=== PATIENT | female | born 1965 | race Caucasian/White ===

== ENCOUNTER 2019-12-24 15:46 | Observation (INO) | payer BC ==
--- OUTSIDE RECORDS SUMMARY | 2019-12-24 15:47 | XMS REPORT | Continuity of Care Document ---
:1965 Author Organization [facility] t Address [address] [place] [address] Care Team Providers Name Role Phone GABBY Attending Clinician Unavailable Problems Condition Condition Condition Status Onset Resolution Last Treating Co mments Source Name Details Category Date Date Treatment Clinician Date History of History of Problem Resolve Univers asthma asthma d ity of [place] Physici ans History of History of Problem Resolve Univers back pain back pain d ity of [place] Physici ans History of History of Problem Resolve Univers depression depression d it y of [place] Physici ans History of History of Problem Resolve Univers diabetes diabetes d ity of mellitus mellitus [place] Physici ans History of History of Problem Resolve Univers hypertensi hypertensi d it y of on on [place] Physici ans History of History of Problem Resolve Univers myocardial myocardial d it y of infarction infarction [place] [facility] History of History of Problem Resolve Univers peptic peptic d ity of ulcer ulcer [place] Physici ans Primary Primary Problem Active Univers osteoarthr osteoarthr it y of itis of itis of [place] right foot right foot Ph ysici ans Right foot Right foot Problem Active U nivers pain pain ity of [place] Physici ans Acquired Acquired Problem Active Unive rs hallux hallux ity of rigidus, rigidus, [place] right right Physici ans Ankle Ankle Problem Active Univers weakness weakness ity of [place] Physici ans Acute pain Acute pain Problem Active U nivers of left of left ity of knee knee [place] Physici ans Allergies, Adverse Reactions, Alerts Allergy Allergy Status Severity Reaction(s) Onset Inactive Treating Comm ents Source Name Type Date Date Clinician Cephalos drug Active Univers porins allergy ity of [place] Physici ans Cipro drug Active Univers allergy ity of [place] Physici ans Lyrica drug Active Univers CAPS allergy ity of [place] Physici ans Family History Family Member Diagnosis Comments Start Date Stop Date Source Mother Family history of [facility] [place] malignant neoplasm Physic ians Father Family history of [facility] [place] coronary artery Physician s disease Social History Smoking Status Start Date Stop Date Source Never smoker [facility] Physicians Medications Ordered Filled Start Stop Current Ordering Indication Dosage Frequency Signature Comments Components Source Medication Medication Date Date Medication? Clinician (SIG) Name Name Lisinopril Lisinopril Yes Uni vers 5 MG Oral 5 MG Oral ity o f Tablet Tablet [place] Physici ans Plavix 75 Plavix 75 Yes Unive rs MG Oral MG Oral ity of Tablet Tablet [place] Physici ans Aspirin 81 Aspirin 81 Yes Uni vers MG Oral MG Oral ity of Tablet Tablet [place] Delayed Delayed Physici Release Release ans PriLOSEC 20 PriLOSEC 20 Yes U nivers MG CPDR MG CPDR ity of [place] Physici ans Gabapentin Gabapentin Yes Uni vers 300 MG TABS 300 MG TABS i ty of [place] Physici ans Amaryl 4 MG Amaryl 4 MG Yes U nivers Oral Tablet Oral Tablet i ty of [place] Physici ans Paxil 20 MG Paxil 20 MG Yes U nivers Oral Tablet Oral Tablet i ty of [place] Physici ans Januvia 100 Januvia 100 Yes U nivers MG Oral MG Oral ity of Tablet Tablet [place] Physici ans Metoprolol Metoprolol Yes Uni vers Succinate Succinate ity o f ER 25 MG ER 25 MG [place] Oral Tablet Oral Tablet P hysici Extended Extended ans Release 24 Release 24 Hour Hour Lipitor 20 Lipitor 20 Yes Uni vers MG Oral MG Oral ity of Tablet Tablet [place] Physici ans Tricor 160 Tricor 160 Yes Uni vers MG TABS MG TABS ity of [place] Physici ans Singulair Singulair Yes Unive rs 10 MG Oral 10 MG Oral ity of Tablet Tablet [place] Physici ans Felipa Felipa Yes Univers Allergy 180 Allergy 180 i ty of MG Oral MG Oral [place] Tablet Tablet Physici ans Phenylephri Phenylephri Yes U nivers ne HCl 10 ne HCl 10 ity o f MG TABS MG TABS [place] Physici ans Robaxin 500 Robaxin 500 Yes U nivers MG Oral MG Oral ity of Tablet Tablet [place] Physici ans TraMADol TraMADol Yes Univers HCl - 50 MG HCl - 50 MG i ty of Oral Tablet Oral Tablet [place] Physici ans Tylenol Tylenol Yes Univers with with ity of Codeine #3 Codeine #3 Julio as 300-30 MG 300-30 MG Physi ci Oral Tablet Oral Tablet a ns Flonase Flonase Yes Univers Allergy Allergy ity of Relief SUSP Relief SUSP [place] Physici ans Ranexa 1000 Ranexa 1000 Yes U nivers MG Oral MG Oral ity of Tablet Tablet [place] Extended Extended Physici Release 12 Release 12 ans Hour Hour Procedures Procedure Date / Time Performing Clinician Source Performed [U] XRAY KNEE 3 VWS LEFT 2017-03-05 00:00:00 Uni [facility] [id number] Physicians [facility] History of cervical [facility] [place] vertebral fusion Physicians History of lumbar University [facility] laminectomy Physicians History of hysterectomy [facility] Physicians [facility] History of cholecystectomy [facility] Physicians History of sinus surgery Univers [facility] Physicians Encounters Start End Encounter Admission Attending Care Care Encounter Source Date/Time Date/Time Type Type Clinicians Facility Department ID 2018-09-16 Outpatient [id number] 14:47:30 [facility] 2017-03-05 2017-03-05 Appointmen ROSA KOWALSKI [place] [id number] [facility] 11:45:00 11:45:00 [facility] SANDI SARKAR Physi ci M.DMili ans 2017-02-14 2017-02-14 Appointmen ROSA KOWALSKI [facility] [id number] Univers 11:30:00 11:30:00 [facility] M.D. [place] SANDI SARKAR Physi ci M.DMili ans Results This patient has no known results.
[2019-12-24 16:30] LABS: Urine Blood NEGATIVE (NEG); Urine Glucose NEGATIVE (NEG); Urine Protein NEGATIVE (NEG); Urine Specific Gravity 1.015 (1.005-1.030)
[2019-12-24 16:39] LABS: Absolute Lymphocytes (CBC) 1.8 K/uL (0.7-4.9); Basophils % 0.3 % (0-1.3); Hematocrit 34.9 % (36.0-45.0); Lymphocytes % 25.8 % (15.3-44.8); RBC Red Blood Cell Count 4.31 M/uL (3.86-4.86)
[2019-12-24 16:55] LABS: Albumin 3.9 g/dL (3.4-5.0); Bilirubin Direct 0.1 mg/dL (0-0.2); Bilirubin Total 0.3 mg/dL (0.2-1.0); Potassium 3.7 mmol/L (3.5-5.1); Protein, Total 7.1 g/dL (6.4-8.2)
[2019-12-24] MEDS ORDERED: NA CHLORIDE 0.9% 500 ML ONE (17:19)
--- NOTE | 2019-12-24 17:48 | RAD REPORT ---
EXAM DESCRIPTION: CTAbdomen Pelvis W Contrast - 12/24/2019 5:20 pm CLINICAL HISTORY: Abdominal pain. RLQ pain;Abd pain COMPARISON: No comparisons TECHNIQUE: Biphasic CT imaging of the abdomen and pelvis was performed with 100 ml non-ionic IV cont rast. All CT scans are performed using dose optimization technique as appropriate and may include automated exposure control or mA/KV adjustment according to patient size. FINDINGS: The lung bases are clear.Cholecystectomy clips. The liver, spleen, pancreas, adrenal glands and kidneys are within normal limits. No bowel obstruction, free air, free fluid or abscess. The appendix is enlarged to 9-10 mm with surr ounding inflammation compatible with early acute appendicitis. No evidence of significant lymphadeno gregoria. Moderate lumbosacral degenerative changes. IMPRESSION: Early acute appendicitis.
--- NOTE | 2019-12-24 18:06 | EDPHYS ---
Physician Documentation [facility] Name: Shahida Guardado Age: 54 yrs Sex: Female : 1965 Arrival Date: 12/24/2019 Time: 15:48 Bed 17 Private MD: Jaime Cortez R ED Physician Chin Aguilar HPI: 12/23 19:02 This 54 yrs old Female presents to ER via Ambulatory with complaints of kdr Abdominal Pain. 19:02 The patient presents with abdominal pain. Onset: The symptoms/episode began/occurred kdr gradually, yesterday. The symptoms radiate to the right flank. Associated signs and symptoms: Pertinent positives: nausea, Pertinent negatives: blood in stools, chest pain, constipation, diarrhea, dysuria, fever, headache, hematuria, palpitations, shortness of breath, vaginal discharge, vomiting, vomiting blood. The symptoms are described as achy, sharp. Severity of pain: At its worst the pain was mild in the emergency department the pain is unchanged. The patient has not experienced similar symptoms in the past. The patient has not recently seen a physician. 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 - Social history:: Smoking status: Patient denies any tobacco usage or history of. ROS: 19:02 Constitutional: Negative for fever, chills, and weight loss, Eyes: Negative for injury, kdr pain, redness, and discharge, Neck: Negative for injury, pain, and swelling, Cardiovascular: Negative for chest pain, palpitations, and edema, Respiratory: Negative for shortness of breath, cough, wheezing, and pleuritic chest pain, Back: Negative for injury and pain, : Negative for injury, bleeding, discharge, and swelling, MS/Extremity: Negative for injury and deformity, Skin: Negative for injury, rash, and discoloration, Neuro: Negative for headache, weakness, numbness, tingling, and seizure activity. Psych: Negative for depression, anxiety, suicide ideation, homicidal ideation, and hallucinations, Allergy/Immunology: Negative for hives, rash, and allergies, Endocrine: Negative for neck swelling, polydipsia, polyuria, polyphagia, and marked weight changes, Hematologic/Lymphatic: Negative for swollen nodes, abnormal bleeding, and unusual bruising. 19:02 Abdomen/GI: Positive for abdominal pain, nausea, Negative for abdominal cramps, abdominal distension, anorexia, dysphagia, hematemesis, black/tarry stool, rectal pain, rectal bleeding, bowel incontinence. Exam: 19:02 Constitutional: This is a well developed, well nourished patient who is awake, alert, kdr and in no acute distress. Head/Face: Normocephalic, atraumatic. Eyes: Pupils equal round and reactive to light, extra-ocular motions intact. Lids and lashes normal. Conjunctiva and sclera are non-icteric and not injected. Cornea within normal limits. Periorbital areas with no swelling, redness, or edema. Neck: Trachea midline, no thyromegaly or masses palpated, and no cervical lymphadenopathy. Supple, full range of motion without nuchal rigidity, or vertebral point tenderness. No Meningismus. Chest/axilla: Normal chest wall appearance and motion. Nontender with no deformity. No lesions are appreciated. Cardiovascular: Regular rate and rhythm with a normal S1 and S2. No gallops, murmurs, or rubs. Normal PMI, no JVD. No pulse deficits. Respiratory: Lungs have equal breath sounds bilaterally, clear to auscultation and percussion. No rales, rhonchi or wheezes noted. No increased work of breathing, no retractions or nasal flaring. Back: No spinal tenderness. No costovertebral tenderness. Full range of motion. Skin: Warm, dry with normal turgor. Normal color with no rashes, no lesions, and no evidence of cellulitis. MS/ Extremity: Pulses equal, no cyanosis. Neurovascular intact. Full, normal range of motion. Neuro: Awake and alert, GCS 15, oriented to person, place, time, and situation. Cranial nerves II-XII grossly intact. Motor strength 5/5 in all extremities. Sensory grossly intact. Cerebellar exam normal. Normal gait. Psych: Awake, alert, with orientation to person, place and time. Behavior, mood, and affect are within normal limits. 19:02 Abdomen/GI: Inspection: obese Bowel sounds: active, Palpation: soft, mild abdominal tenderness, in the anterior aspect of right lateral abdomen and right lower quadrant. 20:02 ECG was reviewed by the Attending Physician. kdr Vital Signs: 15:53 BP 110 / 73; Pulse 82; Resp 20; Temp 97.8; Pulse Ox 100% ; Weight 95.71 kg; Height 5 sv ft. 7 in. (170.18 cm); 17:27 BP 110 / 55; Pulse 69; Resp 17 S; Pulse Ox 97% on R/A; ca1 18:30 BP 115 / 77; Pulse 66; Resp 15 S; Pulse Ox 100% on R/A; ca1 15:53 Body Mass Index 33.05 (95.71 kg, 170.18 cm) sv MDM: 18:05 Patient medically screened. kdr 19:02 Data reviewed: vital signs, nurses notes, lab test result(s), radiologic studies. kdr Counseling: I had a detailed discussion with the patient and/or guardian regarding: the historical points, exam findings, and any diagnostic results supporting the discharge/admit diagnosis, lab results, radiology results, the need for further work-up and treatment in the hospital. Physician consultation: Miguelito Rowley MD regarding admission, patient's condition. 12/23 16:20 Order name: Basic Metabolic Panel; Complete Time: 17:01 kdr 12/23 16:20 Order name: CBC with Diff; Complete Time: 17: kdr 12/23 16:20 Order name: Hepatic Function; Complete Time: 17: kdr 12/23 16:20 Order name: Lipase; Complete Time: 17:01 kdr 12/23 16:26 Order name: Urine Dipstick--Ancillary (enter results); Complete Time: 17:01 eb 12/23 17:01 Order name: CT Abd/Pelvis - IV Contrast Only; Complete Time: 18:02 kdr 12/23 16:15 Order name: Urine Dipstick-Ancillary (obtain specimen); Complete Time: 16:21 ca1 12/23 16:20 Order name: IV Saline Lock; Complete Time: 16:35 kdr 12/23 16:20 Order name: Labs collected and sent; Complete Time: 16:35 kdr 12/23 18:18 Order name: Chest Single View XRAY ca1 12/23 18:19 Order name: EKG; Complete Time: 18: ca1 12/23 18: Order name: EKG - Nurse/Tech; Complete Time: 18: ca1 EC:02 Rate is 65 beats/min. Rhythm is regular, Normal Sinus Rhythm with No ectopy. QRS [place] kdr is Normal. SC interval is normal. QRS interval is normal. QT interval is normal. Clinical impression: NSR w/ Non-specific ST/T Changes. Administered Medications: 17:09 Drug: NS 0.9% 500 ml Route: IV; Rate: bolus; Site: right antecubital; ca1 18:03 Follow up: IV Status: Completed infusion; IV Intake: 500ml ca1 18:03 Follow up: Response: No adverse reaction ca1 18:18 Drug: Zosyn 3.375 grams Route: IVPB; Infused Over: 60 mins; Site: right antecubital; ca1 Disposition: 12/24/19 18:05 Hospitalization ordered by Miguelito Rowley for Observation. Preliminary diagnosis is Acute appendicitis. - Bed requested for Telemetry/MedSurg (observation). - Status is Observation. aj1 - Condition is Fair. - Problem is new. - Symptoms have improved. Signatures: Dispatcher [employer] EDMS Geri Aragon RN RN aj1 Khloe Fang RN RN Chin Aguilar MD MD kdr Angie Brumfield RN RN ca1 Corrections: (The following items were deleted from the chart) 19: 18:05 Hospitalization Ordered by Miguelito Rowley MD for Observation. Preliminary aj1 diagnosis is Acute appendicitis. Bed requested for Telemetry/MedSurg (observation). Status is Observation. Condition is Fair. Problem is new. Symptoms have improved. kdr
--- NOTE | 2019-12-24 18:06 | ER ---
Nurse's Notes [facility] Name: Shahida Guardado Age: 54 yrs Sex: Female : 1965 Arrival Date: 12/24/2019 Time: 15:48 Bed 17 Private MD: Jaime Cortez R Diagnosis: Acute appendicitis Presentation: 12/23 15:52 Chief complaint: Patient states: RLQ pain that started yesterday. Denies n/v. sv Coronavirus screen: Client denies travel out of the [place] in the last 14 days. At this time, the client does not indicate any symptoms associated with coronavirus-19. Ebola Screen: No symptoms or risks identified at this time. Risk Assessment: Do you want to hurt yourself or someone else? Patient reports no desire to harm self or others. Onset of symptoms was December 23, 2019. 15:52 Method Of Arrival: Ambulatory sv 15:52 Acuity: KIMBERLY 3 sv 15:53 Initial Sepsis Screen: Does the patient meet any 2 criteria? No. Patient's initial sv sepsis screen is negative. Does the patient have a suspected source of infection? No. Patient's initial sepsis screen is negative. 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 - Social history:: Smoking status: Patient denies any tobacco usage or history of. Screenin:05 Abuse screen: Denies threats or abuse. Denies injuries from another. Nutritional ca1 screening: No deficits noted. Tuberculosis screening: No symptoms or risk factors identified. Fall Risk IV access (20 points). Assessment: 15:54 Reassessment: Informed Dr Aguilar of reason for visit. sv 16:05 General: Appears in no apparent distress. comfortable, Behavior is calm, cooperative, ca1 appropriate for age. Pain: Complains of pain in right lower quadrant Pain began 1 day ago. Is intermittent. Neuro: Level of Consciousness is awake, alert, obeys commands, Oriented to person, place, time, situation. Cardiovascular: Heart tones S1 S2 present Capillary refill < 3 seconds Patient's skin is warm and dry. Respiratory: Airway is patent Respiratory effort is even, unlabored, Respiratory pattern is regular, symmetrical, Breath sounds are clear bilaterally. GI: Abdomen is round non-distended, Bowel sounds present X 4 quads. Abd is soft X 4 quads Abdomen is tender to palpation in suprapubic area and right lower quadrant Reports nausea. : No signs and/or symptoms were reported regarding the genitourinary system. EENT: No signs and/or symptoms were reported regarding the EENT system. Derm: Skin is intact, is healthy with good turgor, Skin is pink, warm \T\ dry. Musculoskeletal: Circulation, motion, and sensation intact. Capillary refill < 3 seconds. 17:27 Reassessment: Patient appears in no apparent distress at this time. Patient and/or ca1 family updated on plan of care and expected duration. Pain level reassessed. Patient is alert, oriented x 3, equal unlabored respirations, skin warm/dry/pink. 18:30 Reassessment: Patient appears in no apparent distress at this time. Patient and/or ca1 family updated on plan of care and expected duration. Pain level reassessed. Patient is alert, oriented x 3, equal unlabored respirations, skin warm/dry/pink. 19:01 Reassessment: Patient and/or family updated on plan of care and expected duration. Pain aj1 level reassessed. Patient is alert, oriented x 3, equal unlabored respirations, skin warm/dry/pink. Patient ambulated to the restroom with a steady gait. Vital Signs: 15:53 BP 110 / 73; Pulse 82; Resp 20; Temp 97.8; Pulse Ox 100% ; Weight 95.71 kg; Height 5 sv ft. 7 in. (170.18 cm); 17:27 BP 110 / 55; Pulse 69; Resp 17 S; Pulse Ox 97% on R/A; ca1 18:30 BP 115 / 77; Pulse 66; Resp 15 S; Pulse Ox 100% on R/A; ca1 15:53 Body Mass Index 33.05 (95.71 kg, 170.18 cm) sv ED Course: 15:48 Patient arrived in ED. mr 15:48 Jaime Cortez MD is Private Physician. mr 15:52 Arm band placed on. sv 15:53 Triage completed. sv 15:56 Angie Brumfield RN is Primary Nurse. ca1 16:05 Patient has correct armband on for positive identification. Placed in gown. Bed in low ca1 position. Call light in reach. Side rails up X2. Pulse ox on. NIBP on. Warm blanket given. 16:20 Chin Aguilar MD is Attending Physician. kdr 16:35 Inserted saline lock: 20 gauge in right antecubital area, using aseptic technique. dh4 Blood collected. 16:35 Hepatic Function Sent. dh4 16:35 Lipase Sent. dh4 16:35 Basic Metabolic Panel Sent. dh4 16:36 CBC with Diff Sent. dh4 17:20 CT Abd/Pelvis - IV Contrast Only In Process Unspecified. EDMS 18:03 Miguelito Rowley MD is Hospitalizing Provider. kdr 18:58 Chest Single View XRAY In Process Unspecified. EDMS 19:00 Report given to VERENICE Nevarez. ca1 19:17 Report given to ERNESTO Higgins RN. aj1 19:18 No provider procedures requiring assistance completed. aj1 19:19 Patient admitted, IV remains in place. aj1 Administered Medications: 17:09 Drug: NS 0.9% 500 ml Route: IV; Rate: bolus; Site: right antecubital; ca1 18:03 Follow up: IV Status: Completed infusion; IV Intake: 500ml ca1 18:03 Follow up: Response: No adverse reaction ca1 18:18 Drug: Zosyn 3.375 grams Route: IVPB; Infused Over: 60 mins; Site: right antecubital; ca1 Intake: 18:03 IV: 500ml; Total: 500ml. ca1 Outcome: 18:05 Decision to Hospitalize by Provider. kdr 19:19 Admitted to OR via stretcher. aj1 19:19 Condition: good 19:19 Discharge instructions given to patient, Instructed on the need for admit, Demonstrated understanding of instructions. 19:19 Patient left the ED. aj1 Signatures: Dispatcher [employer] EDMS Geri Aragon RN RN aj1 Khloe Fang RN RN Chin Aguilar MD MD kdr Madison Santiago mr Angie Brumfield RN RN ca1 Anil Ibrahim 4 Corrections: (The following items were deleted from the chart) 16:15 16:05 GI: Abdomen is round non-distended, Bowel sounds present X 4 quads. Abd is soft X ca1 4 quads Abdomen is tender to palpation in right lower quadrant Reports nausea, ca1
[2019-12-24] MEDS ORDERED: PIPER/TAZO/NS 3.375gm 3.375 GM/100 ML BAG ONE ×2 (18:22→23:50)
--- OUTSIDE RECORDS SUMMARY | 2019-12-24 19:08 | XMS REPORT | Continuity of Care Document ---
:1965 Author Organization [facility] t Address [address] [place] [address] Care Team Providers Name Role Phone GABBY [...] Mother Family history of [facility] [place] malignant neoplasm Physic ians Father Family history of [facility] [place] coronary artery Physician s disease Social History Smoking Status Start Date Stop Date Source Never smoker [facility] Physicians Medications Ordered Filled Start [...] nivers MG CPDR MG CPDR ity of [place] Physici ans Gabapentin Gabapentin Yes Uni vers 300 MG TABS 300 MG TABS i ty of [place] Physici ans Amaryl 4 MG Amaryl 4 MG Yes U nivers Oral Tablet Oral Tablet i ty of [place] Physici ans Paxil 20 MG Paxil 20 MG Yes U nivers Oral Tablet Oral Tablet i ty of [place] Physici ans Januvia 100 Januvia 100 Yes U nivers MG Oral MG Oral ity of Tablet Tablet [place] Physici ans Metoprolol Metoprolol Yes Uni vers Succinate Succinate ity o f ER 25 MG ER 25 MG [place] Oral Tablet Oral Tablet P hysici Extended Extended ans Release 24 Release 24 Hour Hour Lipitor 20 Lipitor 20 Yes Uni vers MG Oral MG Oral ity of Tablet Tablet [place] Physici ans Tricor 160 Tricor 160 Yes Uni vers MG TABS MG TABS ity of [place] Physici ans Singulair Singulair Yes Unive rs 10 MG Oral 10 MG Oral ity of Tablet Tablet [place] Physici ans Felipa Felipa Yes Univers Allergy 180 Allergy 180 i ty of MG Oral MG Oral [place] Tablet Tablet Physici ans Phenylephri Phenylephri Yes U nivers ne HCl 10 ne HCl 10 ity o f MG TABS MG TABS [place] Physici ans Robaxin 500 Robaxin 500 Yes U nivers MG Oral MG Oral ity of Tablet Tablet [place] Physici ans TraMADol TraMADol Yes Univers HCl [...] KNEE 3 VWS LEFT 2017-03-05 00:00:00 Uni [facility] [id number] Physicians History of coronary artery Unive [facility] bypass graft Physicians History of cervical [facility] [place] vertebral fusion Physicians History of lumbar University [facility] laminectomy Physicians History of hysterectomy [facility] Physicians [facility] History of cholecystectomy Unive [facility] Physicians History of sinus surgery [facility] Physicians Encounters Start End Encounter Admission Attending Care Care Encounter Source Date/Time Date/Time Type Type Clinicians Facility Department ID 2018-09-16 Outpatient [id number] 14:47:30 [facility] 2017-03-05 2017-03-05 Appointmen ROSA KOWALSKI [place] [id number] Univers 11:45:00 11:45:00 [facility] of [facility] SANDI SARKAR Physi ci M.DMili ans 2017-02-14 2017-02-14 Appointmen ROSA KOWALSKI [facility] [id number] Univers 11:30:00 11:30:00 [facility] M.D. [place] SANDI SARKAR Physi ci M.DMili ans Results This patient has no known results.
--- NOTE | 2019-12-24 19:12 | RAD REPORT ---
EXAM DESCRIPTION: RAD - Chest Single View - 12/24/2019 6:58 pm CLINICAL HISTORY: PREOP Chest pain. COMPARISON: Ct Stroke Brain Wo Cont dated 12/23/2019CHEST PA AND LAT 2 VIEW dated 05/30/2014 FINDINGS: Portable technique limits examination quality. The lungs are grossly clear. The heart is normal in size. No displaced fractures.Sternotomy wires not ed. IMPRESSION: No acute intrathoracic process suspected.
[2019-12-24] MEDS ORDERED: ROCURONIUM 50 MG/5 ML VIAL IV ONE (19:27)
[2019-12-24] MEDS ORDERED: propofoL 200 MG/20 ML VIAL IV ONE (19:27)
[2019-12-24] MEDS ORDERED: LIDOCAINE 2% MPF 5 ML VIAL ONE (19:27)
[2019-12-24] MEDS ORDERED: FENTANYL CITR 100 MCG/2 ML ONE (19:28)
[2019-12-24] MEDS ORDERED: ONDANSETRON 4 MG/2 ML VIAL ONE (19:28)
[2019-12-24] MEDS ORDERED: KETOROLAC 30 MG/ML INJ ONE (19:28)
[2019-12-24] MEDS ORDERED: dexAMETHasone 10 MG/ML VIAL ONE (19:30)
[2019-12-24] MEDS ORDERED: NA CHLORIDE 0.9% 1,000 ML ONE (19:34)
[2019-12-24] MEDS ORDERED: GLYCOPYRROLATE 0.2 MG/ML SYR ONE (20:33)
[2019-12-24] MEDS ORDERED: ONDANSETRON 4 MG/2 ML VIAL IV PRN (20:59)
[2019-12-24] MEDS ORDERED: HYDROCODONE/APAP 5/325 MG TAB PO PRN (20:59)
[2019-12-24] MEDS ORDERED: SODIUM CHLORIDE 0.9% 10ML INJ IV PRN (20:59)
[2019-12-24] MEDS ORDERED: MORPHINE 2 MG/ML SYR IV PRN (20:59)
[2019-12-24] MEDS ORDERED: D50W 25 GM/50 ML SYRINGE/VIAL IV ONE (21:15)
[2019-12-24] MEDS ORDERED: HYDROMORPHONE HCL 1 MG/ML INJ ONE (21:39)
[2019-12-24] MEDS: NA CHLORIDE 0.9% 1,000 ML IV SCH (21:54)
[2019-12-24 23:13] VITALS: BMI 33.0
[2019-12-24 23:38] VITALS: O2SAT 96
--- NOTE | 2019-12-25 00:33 | OP ---
Date of Procedure: 12/24/2019 Surgeon: Miguelito Rowley MD Preoperative Diagnoses: Acute appendicitis and diabetes. Postoperative Diagnoses: Acute appendicitis and diabetes. Procedure: Laparoscopic appendectomy. Anesthesia: General plus local. Estimated Blood Loss: Less than 10 mL. Complications: None. Findings: Acute appendicitis. Indications: This is the case of a 54-year-old patient with above diagnosis. Fully explained the be nefits, alternatives, and risks of laparoscopic possible open appendectomy, which include, but not li mited to infection, bleeding, damage to adjacent structures, anesthesia complication, [place], and even de ath. She also understands this may not relieve the symptoms. She might need more than one surgical intervention. She understood and signed a consent. Description Of Procedure: The patient was brought to the operating room and placed supine position. Anesthesia was done without complication. Abdominal area was prepped and draped in a sterile fashio n. Marcaine 0.5% was injected for local anesthetic followed by sharp incision of the skin in the inf raumbilical region. The incision was carried down to fascia, which was opened under direct vision. Peritoneum was encountered, opened under direct vision. Vicryl #1 placed inside the fascia. Román trocar was carefully introduced. No bleeding was obtained. I placed 2 more trocars, 5 mm each one o f them, one in the suprapubic area, another one in the left lower quadrant under direct visualization using same technique, which consisted of local anesthetic, sharp incision of the skin, and introduct ion of the trocars under direct vision. This allowed me to visualize the area of the right lower cristiano drant where we noticed the patient to have an inflamed distal appendix. The base of appendix seems t o be spared, so we created a window in the base of the appendix, transected that with Endo BRIAN 45 mm 3.5 and the mesoappendix with Endo BRIAN 45 mm 2.5, and the rest of the hemostasis was obtained with th e help of hemoclips. The area was irrigated and suctioned. No bleeding. No bowel leak. At that mo ment, I proceeded to remove the trocars under direct vision, deflated the pneumoperitoneum, closed th e fascia with 1 Vicryl, irrigated subcutaneous tissue, closed that with 3-0 chromic and skin with sta ples. Sponge count and instrument counts were correct. The patient tolerated the procedure well. T he patient was sent to recovery in stable condition. JAQUELINE/LISA Voice ID: [id number] Report ID: [id number]
--- NOTE | 2019-12-25 01:13 | HP ---
Date of Admission: 12/24/2019 Diagnosis: Acute appendicitis. History Of Present Illness: This is the case of a 54-year-old patient, who started to have abdominal pain, periumbilical to the right lower quadrant since yesterday. 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 T he pain did not get better. She thought it was gas, this afternoon was worse, and she decided to com e to the [facility]. Diagnosed with acute appendicitis. She denies any dysuria, hematuria, hematoch ezia, melena. Denies any recent traveling out of the country. Denies any family member sick at home . Denies any shortness of breath. Denies any chest pain. Review of Systems: Ten points otherwise unremarkable. Past Surgical History: Include hysterectomy, cholecystectomy, tubal ligation. Allergies: INCLUDE CEPHALOSPORINS, CIPRO, LYRICA. Medical Problems: Include diabetes non-insulin dependent, hyperlipidemia, hypertension. Physical Examination: General: The patient is awake and alert. HEENT: Pupils are equal and reactive. Anicteric. Neck: Supple. Chest: Clear. Abdomen: Right lower quadrant tenderness with guarding. Pelvic: Deferred. Rectal: Deferred. Breast: Deferred. Extremities: Good capillary refill. Neurologic: Cranial nerves 2 through 12 grossly within normal limits. Laboratory Data: WBC count of 7, hemoglobin of 11.4, platelets of 256. Potassium 3.7, creatinine is 0.93. Imaging Studies: CAT scan of abdomen and pelvis, interpreted by Dr. Schwab, showing acute appendicitis with dilated appendix about 10 mm with surrounding inflammation. Assessment: A 54-year-old patient with an acute appendicitis. The benefits, alternatives, and risks including, but not limited to infection, bleeding, damage to adjacent structures, anesthesia complic ation, [place], and even for laparoscopic possible open appendectomy. She understood, OR was called emergently. The patient claims she had a colonoscopy done recently, although she does not have a re sult right now and she claimed that was negative. She was advised to check with the primary doctor. JAQUELINE/LISA Voice ID: [id number]
[2019-12-25 06:07] LABS: Absolute Lymphocytes (CBC) 0.7 K/uL (0.7-4.9); Basophils % 0.1 % (0-1.3); Hematocrit 32.6 % (36.0-45.0); Lymphocytes % 7.9 % (15.3-44.8); MPV 9.3 fL (7.6-11.3)
[2019-12-25 06:13] LABS: Potassium 4.2 mmol/L (3.5-5.1)
[2019-12-25] MEDS: NA CHLORIDE 0.9% 1,000 ML IV SCH (06:45)
[2019-12-25 07:09] LABS: Blood Morphology Comment NOT SEEN (NOT SEEN); Platelet Estimate ADEQ; White Blood Cell Scan OK (OK)
[2019-12-25] MEDS ORDERED: PIPER/TAZO/NS 3.375gm 3.375 GM/100 ML BAG IVPB SCH ×2 (09:00)
[2019-12-25] MEDS ORDERED: PANTOPRAZOLE 40 MG INJ IVP SCH (09:00)
[2019-12-25 09:31] VITALS: TEMP 97
--- NOTE | 2019-12-25 13:19 | DS ---
Date of Discharge: 12/25/2019 Diagnoses: Acute appendicitis, diabetes. History Of Present Illness: This is a case of a 54-year-old patient with above diagnosis, underwent laparoscopic appendectomy uneventfully. Right now doing well, tolerating diet. No shortness of mark th. No chest pain. No fever. Physical Examination: Unremarkable. Intact surgical site. No calf tenderness. Ambulating using same spirometry. The patient wants to go home. She will be discharged home on Augmentin p.o. q.2 hours, Tylenol No.3 q.4 hours p.r.n. pain, and Zofran p.o. q.6 p.r.n. nausea. Plan: Follow up in my office in 1 week. Call for appointment at [phone]. Keep area dry for 24 gina rs, then may shower. AURELIO Voice ID: [id number] Report ID: [id number]
[2019-12-25 14:35] VITALS: BP 137/63
== END 2019-12-25 12:50 | disposition home or self-care (01) ==
LOC: ER 15:46 → OR 18:58 → 2ND 20:59
PROVIDERS: ADMIT Surgery; ATTEND Surgery
PROC: 0DTJ4ZZ Resection of Appendix, Percutaneous Endoscopic Approach (ICD-10-PCS; principal; 2019-12-24 19:00)
DX: K35.80 Unspecified acute appendicitis (principal); E11.9 Type 2 diabetes mellitus without complications; I10 Essential (primary) hypertension; I25.10 Atherosclerotic heart disease of native coronary artery without angina pectoris; E78.5 Hyperlipidemia, unspecified; Z90.49 Acquired absence of other specified parts of digestive tract; Z88.3 Allergy status to other anti-infective agents; Z88.6 Allergy status to analgesic agent; Z95.1 Presence of aortocoronary bypass graft; Z95.5 Presence of coronary angioplasty implant and graft
CPT/HCPCS: 96361; 93005; 85025 ×2; 80048 ×2; 36415; 82947 ×4; 80076; 88304; 81003; 83690; 74177; 71045; 94010; 96374; 99285; 44970; Q9967; J2704; J3010; J2543 ×2; J1100; J1170; J7040; J7030 ×2; J2405; G0378 ×3; C9113